=== PATIENT | female | born 1975 | race Caucasian/White ===

== ENCOUNTER 2024-04-26 13:21 | Emergency (ER) | payer OTHER, SELFPAY ==
[2024-04-26 13:22] VITALS: BP 156/112
[2024-04-26 13:40] LABS: % Basophils 0.8 % (0-2); % Eosinophils 0.3 % (0-6); % Immature Granulocytes 0.3 % (0-0.5); % Lymphocytes 24.9 % (20.5-51.1); % Monocytes 5.4 % (1.7-9.3); % Neutrophils 68.3 % (42.2-75.2); Absolute Basophils 0.1 10^3/uL (0-0.2); Absolute Lymphocytes 1.5 10^3/uL (1.2-3.4); Absolute Monocytes 0.3 10^3/uL (0.1-0.6); Absolute Neutrophils 4.2 10^3/uL (1.4-6.5); Hematocrit 42.6 % (37.0-47.0); Hemoglobin 14.5 g/dL (12.0-16.0); Mean Corpuscular Hgb 29.3 pg (27.0-31.0); Mean Corpuscular Volume 86.1 fL (81.0-99.0); Mean Platelet Volume 9.3 fL (7.4-10.4); Nucleated Red Blood Cells % 0 %; Platelet Count 221 10^3/uL (130-400); Red Blood Cell Count 4.95 10^6/uL (4.20-5.40); Red Cell Dist. Width 14.1 % (11.5-14.5); White Blood Cell Count 6.1 10^3/uL (4.8-10.8)
[2024-04-26 13:50] LABS: HCG, Serum Qualitative Screen Negative
[2024-04-26 13:53] LABS: Blood Urea Nitrogen 9 mg/dl (7-17); Carbon Dioxide 27 mmol/L (22-30); Chloride 108 mmol/L (98-107); Glucose 98 mg/dl (70-99); Potassium 4.1 mmol/L (3.5-5.1); Sodium 149 mmol/L (135-145); eGFR > 60.00
--- NOTE | 2024-04-26 14:15 | ED.GENMED ---
History of Present Illness
General
Chief Complaint: Alcohol Problem
Source: patient
Exam Limitations: none
Time Seen by Provider: 04/26/24 14:07
History of Present Illness
History of Present Illness:
See MDM
Past History
Past History
ED Past Medical History: HTN
ED Past Surgical History: None
Social History
Tobacco: Non-smoker
Alcohol: Daily
Phy Exam
Physical Exam
Physical Exam:
See MDM
Scores
Withdrawal Assessment of Alcohol
Withdrawal Assessment Completed?: Yes
Nausea and Vomiting: No nausea and no vomiting
Tactile Disturbances: None
Tremor: Moderate, with patient's arms extended
Auditory Disturbances: Not present
Paroxysmal Sweats: No sweat visible
Visual Disturbances: Not present
Anxiety: Mild anxiety
Headache, Fullness in Head: Not present
Agitation: Normal activity
Orientation and clouding of sensorium: Oriented and can do serial additions
Total CIWA Score: 5
Alcohol Withdrawal Medication Recommendation: Equal to MSAS Score 0-4. Monitor & re-assess q2hrs, NO MEDICATION NEEDED
Course
Orders/Labs/Results
Orders:
Orders
04/26/24 13:25
Crisis Consult Urgent
Reason for Consult: depression
Test Result ONCE
04/26/24 13:29
Alcohol Urgent
Basic Metabolic Panel Urgent
Complete Blood Count/With Diff Urgent
HCG, Serum Qualitative Screen Urgent
Comment: Notify provider if positive test present
04/26/24 14:14
Lorazepam [Ativan] 1 mg PO NOW STA
04/26/24 14:49
Fentanyl, Urine Urgent
Urine Drug Abuse Screen Urgent
Date Specimen was Collected: 04/26/24
Time Specimen was Collected: 13:25
04/26/24 18:03
Lorazepam [Ativan] 1 mg PO NOW STA
Abnormal Lab Results
04/26/24 04/26/24
13:29 14:49
Sodium 149 H mmol/L
(135-145)
Chloride 108 H mmol/L
(98-107)
U Benzodiazepines Scrn Positive H
(Negative)
U Marijuana (THC) Screen Positive H
(Negative)
04/26/24 13:29
04/26/24 13:29
Vital Signs
Initial and Last Documented VS:
Initial Vital Signs
Temp Pulse Resp BP Pulse Ox
98.3 F 99 20 156/112 99
04/26/24 13:22 04/26/24 13:22 04/26/24 13:22 04/26/24 13:22 04/26/24 13:22
Last Documented Vital Signs
Temp Pulse Resp BP Pulse Ox
98.3 F 107 19 156/95 98
04/26/24 13:22 04/26/24 18:00 04/26/24 18:00 04/26/24 18:00 04/26/24 18:00
MDM/Problems Addressed
Differential Diagnosis Includes:
HPI and MDM Narrative:
48-year-old female presenting for evaluation for inpatient detox. Patient admits to increased alcohol consumption over the past several weeks. She drinks about a pint of liquor a day. Her last drink was this morning. She started to feel shaky
and nauseous and concern for mild withdrawal.
On exam, she does appear comfortable but she has a mild tremor. Will give dose of Ativan and have BECARES evaluate
Physical exam
General: Well appearing and non-toxic
HEENT: protecting airway
Neck: appears supple
CV: No evidence of cyanosis. Regular rate and rhythm
Resp: No accessory muscle use. Lungs clear
Abd: Non-distended
Extremities: No deformities
Neuro: alert
Psych: Normal affect
Skin: Intact
Problems Addressed including Acute and Chronic Conditions affecting care:
1. Mild alcohol withdrawal
Acuity: acute
Prognosis: stable
Details: Will give dose of p.o. Ativan. Will have BECSTEPHANY evaluate for inpatient detox
Updates
BECSTEPHANY able to set up rehab. Patient otherwise medically cleared
Differential Diagnosis (but not limited to): Alcohol withdrawal, Anxiety
Testing considered: Chest x-ray but lungs clear
Drug therapy (if applicable): OTC meds, please see d/c instruction regarding Rx drugs
Amount and/or Complexity of Data Reviewed
Clinical info obtained from: Patient
External data reviewed: N/A
Labs I independently reviewed (but not limited to): White blood cell count normal
Radiology: N/A
Pulse Ox: not hypoxic
EKG independently reviewed: N/A
Windshield Repair Technician: N/A
Critical Care: N/A
Risk of Complication:
Social Determinants of health: Good social support
Discussed with other providers: Alcohol counselor
Escalation of Care includes Admit/Obs: BECARES able to set up alcohol rehab
Occasional wrong word or 'sound a like' substitutions may have occurred due to the inherent limitations of voice recognition software. Read the chart carefully and recognize, using context, where substitutions have occurred.
*Critical Care Note
Total Time (30-74mins, 75-104mins- exclusive of procedures): Not Applicable
ED Attending Note
-
Portions of this chart may have been created with voice recognition software.� Occasional wrong word or��sound alike� substitutions may have occurred due to the inherent limitations of voice recognition software.
Discharge Plan
Departure
Patient Disposition: Acute Rehab Facility
Date of Disposition: 04/26/24
Time of Disposition: 16:11
Discharge Problem:
Alcohol withdrawal
Referrals:
NONE,* [Family Provider] -
Interventions
Interventions:
*Risk Screen - Suicide Last Done: 04/26/24 13:22
*General Assessment Last Done: 04/26/24 13:22
*Neglect/Abuse Screening Last Done: 04/26/24 13:22
ED- Fall Risk Assessment Last Done: 04/26/24 14:54
*Nursing Disposition Last Done: 04/26/24 18:46
ED- Neurological Assessment Last Done: 04/26/24 14:54
ED-Psychological Assessment Last Done: 04/26/24 14:54
Discharge Date and Time
Discharge Date/Time: 04/26/24 18:46
Print Language: [place]IZ[place]
[2024-04-26 14:22] LABS: Alcohol 296 mg/dl
[2024-04-26] MEDS: ATIVAN 1 MG PO ×2 (14:48→18:23)
[2024-04-26 15:11] LABS: Amphetamines Negative (Negative); Barbiturates Negative (Negative); Benzodiazepines Positive (Negative); Buprenorphine Negative (Negative); Cocaine Negative (Negative); Marijuana Positive (Negative); Methadone Negative (Negative); Methamphetamines Negative (Negative); Opiates Negative (Negative); Phencyclidine Negative (Negative); Tricyclic Antidepressants Negative (Negative)
[2024-04-26 15:36] LABS: Fentanyl, Urine Negative (Negative)
[2024-04-26 17:00] VITALS: BP 145/94
[2024-04-26 18:00] VITALS: BP 156/95
== END 2024-04-26 18:46 ==
LOC: EMR 13:21
PROVIDERS: Emergency Medicine; EMERGENCY PHYSICIAN Student in an Organized Health Care Education/Training Program
DX: F10.239 Alcohol dependence with withdrawal, unspecified (principal); Y90.8 Blood alcohol level of 240 mg/100 ml or more; I10 Essential (primary) hypertension
CPT/HCPCS: 99285; 80048; 80306; 80307; 82077; 84703; 85025